=== PATIENT | female | born 1960 | race American Indian/Alaskan Native ===

== ENCOUNTER 2017-11-11 11:38 | Emergency (ER) | payer OTHER ==
--- NOTE | 2017-11-11 12:31 | EDM.PDOC ---
Scribed by Rebecca Pritchard 11/11/17 1200 for Graham Paiz MD ED HPI GENERAL MEDICAL PROBLEM - General Chief Complaint: Wound Recheck Stated Complaint: [id number] STITCHES BLEEDING Time Seen by Provider: 11/11/17 11:43 Source of Information: Reports: Patient, RN, RN Notes Reviewed History Limitations: Reports: No Limitations - History of Present Illness INITIAL COMMENTS - FREE TEXT/NARRATIVE: Pt presents from home by POV with c/o bleeding from the incision of her lumbar surgery. She was seen in clinic by Dr. Villalta yesterday and had sutures removed. Pt states her back surgery took place about [address] Villalta at [facility] in . This morning pt states she did her "normal morning routine" and at 0800HRS her noticed the new dressing on her back was soaked with dark blood. Pt denies any injury, or fall. She denies any increased pain, fever, chills, or neuro. deficits. Onset: Today Onset Date: 11/11/17 Onset Time: 08:00 (est. 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: Reports: Other Medication(s) - Related Data Allergies Allergy/AdvReac Type Severity Reaction Status Date / Time Penicillins Allergy Severe hives and Verified 11/11/17 11:49 can't breath Home Meds: Home Meds Aspirin 1 tab PO DAILY 11/11/17 [History] Carisoprodol 1 tab PO DAILY PRN 11/11/17 [History] Fenofibric Acid (Choline) [Fenofibric Acid] 1 tab PO DAILY 11/11/17 [History] Gabapentin [Neurontin] 1 tab PO DAILY PRN 11/11/17 [History] Hydrochlorothiazide 1 tab PO DAILY 11/11/17 [History] Insulin Glarg,Human.Rec.Analog [Lantus Solostar] 30 units SQ BID 11/11/17 [ History] Lisinopril 1 tab PO DAILY 11/11/17 [History] atorvaSTATin Calcium [Atorvastatin Calcium] 1 tab PO DAILY 11/11/17 [History] glyBURIDE [Glyburide] 2 tab PO BID 11/11/17 [History] metFORMIN HCl [Metformin HCl] 1 tab PO BID 11/11/17 [History] oxyCODONE 1 tab PO Q4H PRN 11/11/17 [History] Past Medical History Musculoskeletal History: Reports: Back Pain, Chronic Endocrine/Metabolic History: Reports: Diabetes, Type II, IDDM - Past Surgical History Neurological Surgical History: Reports: Lumbar Spine (October 28, 2017, at [facility], by Dr. Villalta) Social & Family History - Family History Family Medical History: Noncontributory - Living Situation & Occupation Living situation: Reports: Occupation: Disabled ED ROS GENERAL - Review of Systems Review Of Systems: ROS reveals no pertinent complaints other than HPI. ED EXAM, SKIN/RASH Exam: See Below Exam Limited By: No Limitations General Appearance: Alert, No Apparent Distress, Anxious, Other (chronically ill , non-toxic appearing) Throat/Mouth: Normal Voice Head: Atraumatic, Normocephalic Neck: Normal Inspection Respiratory/Chest: No Respiratory Distress, Lungs Clear, Normal Breath Sounds, No Accessory Muscle Use, Chest Non-Tender Cardiovascular: Regular Rate, Rhythm GI/Abdominal: Normal Bowel Sounds, Soft, Non-Tender, No Distention Rectal (Female) Exam: Deferred Back Exam: Decreased Range of Motion (at baseline per pt.), Paraspinal Tenderness (as expected in pt's postoperative state) Extremities: Normal Inspection, Normal Range of Motion, Non-Tender, No Pedal Edema, Normal Capillary Refill Neurological: Alert, Oriented, CN II-XII Intact, Normal Cognition, No Motor/ Sensory Deficits Psychiatric: Anxious Skin: Wound/Incision (Midline lumbar surgical incision with occlusive dressing saturated with dark bloody fluid. The incision has 2 areas of superficial dehis. measuring 2cm and 3cm, with no erythema or any signs of infection, no active bleeding) Course - Vital Signs Last Recorded V/S: Last Vital Signs Temp 36.7 C 11/11/17 11:42 Pulse 93 11/11/17 11:42 Resp 18 11/11/17 11:42 BP 112/57 L 11/11/17 11:42 Pulse Ox 99 11/11/17 11:42 - Re-Assessments/Exams Free Text/Narrative Re-Assessment/Exam: 11/11/17 12:26 Dressing removed and serous/blood area gently cleansed by RN, steri-strips placed over the areas of dehis. and sterile dressing placed over. Pt's instructed in dressing change in the event the dressing becomes saturated. Departure - Departure Time of Disposition: 12:28 Disposition: Home, Self-Care 01 Condition: Good Clinical Impression: Surgical wound dehiscence Qualifiers: Encounter type: initial encounter Qualified Code(s): T81.31XA - Disruption of external operation (surgical) wound, not elsewhere classified, initial encounter - Discharge Information Instructions: Wound Dehiscence, [id number] Forms: ED Department Discharge Additional Instructions: Change the dressing as instructed by the nurse if the dressing becomes saturated with blood. Call Dr. Villalta tomorrow to report the wound dehiscence (opening of the incision). I have read and agree with the documentation that has been completed regarding this visit. By signing this record, I attest that the documentation was completed in my physical presence and is an accurate record of the encounter.
== END 2017-11-11 12:45 | disposition home or self-care (01) ==
LOC: DL.ED 11:38
DX: T81.31XA Disruption of external operation (surgical) wound, not elsewhere classified, initial encounter (principal); E11.9 Type 2 diabetes mellitus without complications; Z88.0 Allergy status to penicillin; Z79.82 Long term (current) use of aspirin; Z79.899 Other long term (current) drug therapy; Z79.4 Long term (current) use of insulin; Z98.890 Other specified postprocedural states
CPT/HCPCS: 99282

== ENCOUNTER 2019-04-04 15:49 | Emergency (ER) | payer OTHER ==
--- NOTE | 2019-04-04 14:18 | EDM.PDOC ---
ED HPI GENERAL MEDICAL PROBLEM - General Stated Complaint: STROKE Time Seen by Provider: 04/04/19 13:58 Source of Information: Reports: Patient, EMS, Family History Limitations: Reports: No Limitations - History of Present Illness INITIAL COMMENTS - FREE TEXT/NARRATIVE: This 58 yo female patient was brought to the ED by [facility] due to increased profound weakness. EMS called in report as a stroke code. Upon arrival in the ED , the patient reports increased back pain. The patient was able to move her upper and lower extremities without difficulties. EMS reported that the patient' s blood sugar was >500. The patient's family reports the patient started to get sick on Thursday, but has been getting worse throughout the weekend. Today, the family reports the patient was too weak to move. The patient has had a spinal surgery causing her increased pain with movement. Onset: Unknown/Unsure Duration: Constant, Getting Worse Location: Reports: Generalized Quality: Reports: Other Severity: Severe Improves with: Reports: None Worsens with: Reports: None Context: Reports: Other Associated Symptoms: Reports: Other (back pain) - Related Data Allergies Allergy/AdvReac Type Severity Reaction Status Date / Time Penicillins Allergy Severe hives and Verified 03/31/19 16:06 can't breath Home Meds: Home Meds Aspirin 81 mg PO DAILY 11/11/17 [History] Fenofibric Acid (Choline) [Fenofibric Acid] 135 mg PO DAILY 11/11/17 [History] Insulin Glarg,Human.Rec.Analog [Lantus Solostar] 50 units SQ BID 11/11/17 [ History] Lisinopril 20 mg PO DAILY 11/11/17 [History] hydroCHLOROthiazide [Hydrochlorothiazide] 25 mg PO DAILY 11/11/17 [History] metFORMIN HCl [Metformin HCl] 1,000 mg PO BID 11/11/17 [History] Alendronate [Fosamax] 70 mg PO WEEKLY 12/28/17 [History] Levothyroxine [Levothroid] 137 mcg PO DAILY 11/09/18 [History] Lactulose 20 gm PO Q3HR PRN #2 bottle 11/10/18 [Rx] Acetaminophen [Tylenol Arthritis] 650 mg PO Q8HR PRN 12/07/18 [History] atorvaSTATin Calcium [Atorvastatin Calcium] 40 mg PO DAILY 12/09/18 [History] Past Medical History HEENT History: Reports: Impaired Vision Other HEENT History: glasses Cardiovascular History: Reports: High Cholesterol, Hypertension Respiratory History: Reports: None Gastrointestinal History: Reports: GERD, Other (See Below) Other Gastrointestinal History: acute constipation from pain pills - takes otc stool softeners. 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: Musculoskeletal History: Reports: Back Pain, Chronic, Osteoarthritis, Other ( See Below) Other Musculoskeletal History: lumbar disc disease Left foot surgery Neurological History: Reports: Vertigo Psychiatric History: Reports: None Endocrine/Metabolic History: Reports: Diabetes, Type II, Hypothyroidism, IDDM Hematologic History: Reports: None Immunologic History: Reports: None Oncologic (Cancer) History: Reports: None Dermatologic History: Reports: None - Infectious Disease History Other Infectious Disease History: unknown - Past Surgical History HEENT Surgical History: Reports: None Cardiovascular Surgical History: Reports: None Respiratory Surgical History: Reports: None GI Surgical History: Reports: None Female Surgical History: Reports: None Neurological Surgical History: Reports: Lumbar Spine, Other (See Below) Other Neurological Surgeries/Procedures: spinal fusion Musculoskeletal Surgical History: Reports: Other (See Below) Other Musculoskeletal Surgeries/Procedures:: back surgery, LEFT foot surgery Social & Family History - Family History Family Medical History: Noncontributory - Caffeine Use Caffeine Use: Reports: None - Living Situation & Occupation Living situation: Reports: Occupation: Disabled ED ROS GENERAL - Review of Systems Review Of Systems: Comprehensive ROS is negative, except as noted in HPI. ED EXAM, GENERAL - Physical Exam Exam: See Below Exam Limited By: No Limitations (Responses were slow, but appropriate) General Appearance: Alert, WD/WN, Moderate Distress Eye Exam: Bilateral Eye: EOMI, Normal Inspection, PERRL Ears: Normal External Exam, Normal Canal, Hearing Grossly Normal, Normal TMs Nose: Normal Inspection, Normal Mucosa, No Blood Throat/Mouth: Normal Inspection, Normal Lips, Normal Teeth, Normal Gums, Normal Oropharynx, Normal Voice, No Airway Compromise Head: Atraumatic, Normocephalic Neck: Normal Inspection, Supple, Non-Tender Respiratory/Chest: No Respiratory Distress, Lungs Clear, Normal Breath Sounds, No Accessory Muscle Use, Chest Non-Tender Cardiovascular: No Edema, No Gallop, No JVD, No Murmur, No Rub, Tachycardia GI/Abdominal: Normal Bowel Sounds, Soft, Non-Tender, No Organomegaly, No Distention, No Abnormal Bruit, No Mass, Pelvis Stable (Female) Exam: Deferred Rectal (Female) Exam: Deferred Back Exam: Normal Inspection, Full Range of Motion, NT Extremities: Normal Inspection, Normal Range of Motion, Non-Tender, Normal Capillary Refill, No Pedal Edema Neurological: Alert, Oriented, Slow to Respond, Other (The patient was able to move all extremities when asked) Skin Exam: Warm, Dry, Normal Color, No Rash, Other (The patient has a bandage on her left foot. ) Lymphatic: No Adenopathy Course - Vital Signs Last Recorded V/S: Last Vital Signs Temp 36.1 C 04/04/19 14:35 Pulse 118 H 04/04/19 15:32 Resp 22 H 04/04/19 15:00 BP 77/49 L 04/04/19 15:32 Pulse Ox 100 04/04/19 15:00 - Orders/Labs/Meds Orders: Active Orders 24 hr Category Date Time Status EKG Documentation Completion [RC] URGENT Care 04/04/19 14:04 Active ABG [BLOOD GAS ARTERIAL] [BG] Stat Lab 04/04/19 15:20 Ordered CULTURE BLOOD [BC] Stat Lab 04/04/19 14:05 Received CULTURE BLOOD [BC] Stat Lab 04/04/19 14:33 Received Blood Culture x2 Reflex Set [OM.PC] Stat Oth 04/04/19 14:30 Ordered Labs: Laboratory Tests 04/04/19 04/04/19 04/04/19 Range/Units 14:05 14:05 14:11 WBC 13.4 H (5.0-10.0) 10^3/uL RBC 4.76 (4.2-5.4) 10^6/uL Hgb 14.6 (12.0-16.0) g/dL Hct 43.9 (37.0-47.0) % MCV 92.2 (80-100) fL MCH 30.7 (27.0-34.0) pg MCHC 33.3 (33.0-35.0) g/dL Plt Count 172 (150-450) 10^3/uL Neut % (Auto) 84.2 H (42.2-75.2) % Lymph % (Auto) 4.5 L (20.5-50.1) % [place] % (Auto) 11.2 H (2-8) % Eos % (Auto) 0.0 L (1.0-3.0) % Baso % (Auto) 0.1 (0.0-1.0) % Add Manual Diff Yes Neutrophils % (Manual) 76 H (42-75) % Band Neutrophils % 8 % Lymphocytes % (Manual) 4 L (20-50) % Monocytes % (Manual) 12 H (2-8) % Nucleated RBCs 1 /100WBC Sodium (135-145) mmol/L Potassium (3.6-5.0) mmol/L Chloride (101-111) mmol/L Carbon Dioxide (21.0-31.0) mmol/L Anion Gap BUN (7-18) mg/dL Creatinine (0.6-1.3) mg/dL Est Cr Clr Drug Dosing Estimated GFR (MDRD) BUN/Creatinine Ratio Glucose (74-105) mg/dL POC Glucose > 500 H* (70-105) mg/dl Lactic Acid (0.5-2.2) mmol/L Calcium (8.4-10.2) mg/dl Magnesium (1.8-2.5) mg/dL Total Bilirubin (0.2-1.0) mg/dL AST (10-42) IU/L ALT (10-60) IU/L Alkaline Phosphatase (42-121) IU/L Ammonia 33 (11-35) umol/L Troponin I (0.00-0.02) ng/ml Total Protein (6.7-8.2) g/dl Albumin (3.2-5.5) g/dl Globulin Albumin/Globulin Ratio Amylase (28-100) U/L Lipase (22-51) U/L Urine Color (YELLOW) Urine Appearance (CLEAR) Urine pH (5.0-9.0) Ur Specific [place] (1.005-1.030) Urine Protein (NEGATIVE) Urine Glucose (UA) (NEGATIVE) Urine Ketones (NEGATIVE) Urine Occult Blood (NEGATIVE) Urine Nitrite (NEGATIVE) Urine Bilirubin (NEGATIVE) Urine Urobilinogen (0.2-1.0) mg/dL Ur Leukocyte Esterase (NEGATIVE) Urine RBC /HPF Urine WBC (0-5/HPF) /HPF Ur Epithelial Cells (NOT SEEN) /HPF Amorphous Sediment (NOT SEEN) /HPF Urine Bacteria (0-FEW/HPF) /HPF Fine Granular Casts (NOT SEEN) /LPF Urine Mucus (NOT SEEN) /LPF Salicylates mg/dL Urine Opiates Screen (NEGATIVE) Ur Oxycodone Screen (NEGATIVE) Urine Methadone Screen (NEGATIVE) Acetaminophen ug/mL Ur Barbiturates Screen (NEGATIVE) U Tricyclic Antidepress (NEGATIVE) Ur Phencyclidine Scrn (NEGATIVE) Ur Amphetamine Screen (NEGATIVE) U Methamphetamines Scrn (NEGATIVE) Urine MDMA Screen (NEGATIVE) U Benzodiazepines Scrn (NEGATIVE) Urine Cocaine Screen (NEGATIVE) U Marijuana (THC) Screen (NEGATIVE) Ethyl Alcohol mg/dL Ketones 04/04/19 04/04/19 04/04/19 Range/Units 14:33 14:33 14:33 WBC (5.0-10.0) 10^3/uL RBC (4.2-5.4) 10^6/uL Hgb (12.0-16.0) g/dL Hct (37.0-47.0) % MCV (80-100) fL MCH (27.0-34.0) pg MCHC (33.0-35.0) g/dL Plt Count (150-450) 10^3/uL Neut % (Auto) (42.2-75.2) % Lymph % (Auto) (20.5-50.1) % [place] % (Auto) (2-8) % Eos % (Auto) (1.0-3.0) % Baso % (Auto) (0.0-1.0) % Add Manual Diff Neutrophils % (Manual) (42-75) % Band Neutrophils % % Lymphocytes % (Manual) (20-50) % Monocytes % (Manual) (2-8) % Nucleated RBCs /100WBC Sodium 123 L D (135-145) mmol/L Potassium 4.2 (3.6-5.0) mmol/L Chloride 84 L (101-111) mmol/L Carbon Dioxide 8.0 L* D (21.0-31.0) mmol/L Anion Gap 35.2 BUN 74 H D (7-18) mg/dL Creatinine 2.1 H D (0.6-1.3) mg/dL Est Cr Clr Drug Dosing TNP Estimated GFR (MDRD) 24 BUN/Creatinine Ratio 35.23 Glucose 598 H* (74-105) mg/dL POC Glucose (70-105) mg/dl Lactic Acid 2.7 H (0.5-2.2) mmol/L Calcium 9.1 (8.4-10.2) mg/dl Magnesium 3.0 H (1.8-2.5) mg/dL Total Bilirubin 2.9 H (0.2-1.0) mg/dL AST 20 (10-42) IU/L ALT 18 (10-60) IU/L Alkaline Phosphatase 57 (42-121) IU/L Ammonia (11-35) umol/L Troponin I 0.10 H* (0.00-0.02) ng/ml Total Protein 7.0 (6.7-8.2) g/dl Albumin 2.8 L (3.2-5.5) g/dl Globulin 4.2 Albumin/Globulin Ratio 0.67 Amylase 330 H (28-100) U/L Lipase > 400 H (22-51) U/L Urine Color (YELLOW) Urine Appearance (CLEAR) Urine pH (5.0-9.0) Ur Specific [place] (1.005-1.030) Urine Protein (NEGATIVE) Urine Glucose (UA) (NEGATIVE) Urine Ketones (NEGATIVE) Urine Occult Blood (NEGATIVE) Urine Nitrite (NEGATIVE) Urine Bilirubin (NEGATIVE) Urine Urobilinogen (0.2-1.0) mg/dL Ur Leukocyte Esterase (NEGATIVE) Urine RBC /HPF Urine WBC (0-5/HPF) /HPF Ur Epithelial Cells (NOT SEEN) /HPF Amorphous Sediment (NOT SEEN) /HPF Urine Bacteria (0-FEW/HPF) /HPF Fine Granular Casts (NOT SEEN) /LPF Urine Mucus (NOT SEEN) /LPF Salicylates < 4 mg/dL Urine Opiates Screen (NEGATIVE) Ur Oxycodone Screen (NEGATIVE) Urine Methadone Screen (NEGATIVE) Acetaminophen < 10 ug/mL Ur Barbiturates Screen (NEGATIVE) U Tricyclic Antidepress (NEGATIVE) Ur Phencyclidine Scrn (NEGATIVE) Ur Amphetamine Screen (NEGATIVE) U Methamphetamines Scrn (NEGATIVE) Urine MDMA Screen (NEGATIVE) U Benzodiazepines Scrn (NEGATIVE) Urine Cocaine Screen (NEGATIVE) U Marijuana (THC) Screen (NEGATIVE) Ethyl Alcohol < 5 mg/dL Ketones Positive 04/04/19 04/04/19 Range/Units 14:50 14:50 WBC (5.0-10.0) 10^3/uL RBC (4.2-5.4) 10^6/uL Hgb (12.0-16.0) g/dL Hct (37.0-47.0) % MCV (80-100) fL MCH (27.0-34.0) pg MCHC (33.0-35.0) g/dL Plt Count (150-450) 10^3/uL Neut % (Auto) (42.2-75.2) % Lymph % (Auto) (20.5-50.1) % [place] % (Auto) (2-8) % Eos % (Auto) (1.0-3.0) % Baso % (Auto) (0.0-1.0) % Add Manual Diff Neutrophils % (Manual) (42-75) % Band Neutrophils % % Lymphocytes % (Manual) (20-50) % Monocytes % (Manual) (2-8) % Nucleated RBCs /100WBC Sodium (135-145) mmol/L Potassium (3.6-5.0) mmol/L Chloride (101-111) mmol/L Carbon Dioxide (21.0-31.0) mmol/L Anion Gap BUN (7-18) mg/dL Creatinine (0.6-1.3) mg/dL Est Cr Clr Drug Dosing Estimated GFR (MDRD) BUN/Creatinine Ratio Glucose (74-105) mg/dL POC Glucose (70-105) mg/dl Lactic Acid (0.5-2.2) mmol/L Calcium (8.4-10.2) mg/dl Magnesium (1.8-2.5) mg/dL Total Bilirubin (0.2-1.0) mg/dL AST (10-42) IU/L ALT (10-60) IU/L Alkaline Phosphatase (42-121) IU/L Ammonia (11-35) umol/L Troponin I (0.00-0.02) ng/ml Total Protein (6.7-8.2) g/dl Albumin (3.2-5.5) g/dl Globulin Albumin/Globulin Ratio Amylase (28-100) U/L Lipase (22-51) U/L Urine Color Yellow (YELLOW) Urine Appearance Cloudy (CLEAR) Urine pH 5.0 (5.0-9.0) Ur Specific [place] 1.010 (1.005-1.030) Urine Protein 30 H (NEGATIVE) Urine Glucose (UA) 500 H (NEGATIVE) Urine Ketones 40 H (NEGATIVE) Urine Occult Blood Trace-intact H (NEGATIVE) Urine Nitrite Negative (NEGATIVE) Urine Bilirubin Moderate H (NEGATIVE) Urine Urobilinogen 0.2 (0.2-1.0) mg/dL Ur Leukocyte Esterase Negative (NEGATIVE) Urine RBC 5-10 H /HPF Urine WBC 0-5 (0-5/HPF) /HPF Ur Epithelial Cells Moderate H (NOT SEEN) /HPF Amorphous Sediment Few (NOT SEEN) /HPF Urine Bacteria Occasional (0-FEW/HPF) /HPF Fine Granular Casts Few H (NOT SEEN) /LPF Urine Mucus Few H (NOT SEEN) /LPF Salicylates mg/dL Urine Opiates Screen Positive H (NEGATIVE) Ur Oxycodone Screen Negative (NEGATIVE) Urine Methadone Screen Negative (NEGATIVE) Acetaminophen ug/mL Ur Barbiturates Screen Negative (NEGATIVE) U Tricyclic Antidepress Negative (NEGATIVE) Ur Phencyclidine Scrn Negative (NEGATIVE) Ur Amphetamine Screen Negative (NEGATIVE) U Methamphetamines Scrn Negative (NEGATIVE) Urine MDMA Screen Negative (NEGATIVE) U Benzodiazepines Scrn Negative (NEGATIVE) Urine Cocaine Screen Negative (NEGATIVE) U Marijuana (THC) Screen Negative (NEGATIVE) Ethyl Alcohol mg/dL Ketones Meds: Medications Discontinued Medications Generic Name Dose Route Start Last Admin Trade Name Freq PRN Reason Stop Dose Admin Sodium Chloride 1,000 mls @ 999 mls/hr 04/04/19 14:18 04/04/19 14:15 Normal Saline IV 04/04/19 15:18 999 mls/hr .BOLUS ONE Administration Departure - Departure Time of Disposition: 15:45 Disposition: DC/Tfer to Acute Hospital 02 Condition: Serious Clinical Impression: Elevated troponin I level DKA (diabetic ketoacidoses) Qualifiers: Diabetes mellitus type: due to underlying condition Diabetes mellitus complication detail: without coma Qualified Code(s): E08.10 - Diabetes mellitus due to underlying condition with ketoacidosis without coma ARF (acute renal failure) Qualifiers: Acute renal failure type: unspecified Qualified Code(s): N17.9 - Acute kidney failure, unspecified - Discharge Information *PRESCRIPTION DRUG MONITORING PROGRAM REVIEWED*: Not Applicable *COPY OF PRESCRIPTION DRUG MONITORING REPORT IN PATIENT SUKI: Not Applicable Forms: Interfacility Transfer EMTALA Care Plan Goals: Discussed the patient's history, examination, lab, CT, x-ray, EKG and treatments with Dr. Rose. Dr. Rose accepted the patient for continued evaluation and further management as an inpatient at [facility] in [place]. The patient will be transported by [facility]. - My Orders Last 24 Hours: My Active Orders 04/04/19 14:04 EKG Documentation Completion [RC] URGENT 04/04/19 14:05 CULTURE BLOOD [BC] Stat 04/04/19 14:30 Blood Culture x2 Reflex Set [OM.PC] Stat 04/04/19 14:33 CULTURE BLOOD [BC] Stat 04/04/19 15:20 ABG [BLOOD GAS ARTERIAL] [BG] Stat - Assessment/Plan Last 24 Hours: My Active Orders 04/04/19 14:04 EKG Documentation Completion [RC] URGENT 04/04/19 14:05 CULTURE BLOOD [BC] Stat 04/04/19 14:30 Blood Culture x2 Reflex Set [OM.PC] Stat 04/04/19 14:33 CULTURE BLOOD [BC] Stat 04/04/19 15:20 ABG [BLOOD GAS ARTERIAL] [BG] Stat
--- NOTE | 2019-04-04 14:36 | CR ---
EXAMINATION: Chest 1V Frontal SEX: Female AGE: 58 years CLINICAL HISTORY: 58-year-old diabetic female (blood sugar greater than 500) with generalized weakness. INTERPRETATION: 1. Normal cardiac silhouette and bony thorax (external equipment monitor phototypesetting leads). 2. No cephalization of vascular flow, pulmonary vascular congestion, alveolar edema or dependent effusion. 3. No focal lobar pneumonia. 4. No lung mass or hilar lymphadenopathy. 5. No atelectasis/collapse. No pneumothorax. CONCLUSION: No acute cardiopulmonary abnormality.
--- NOTE | 2019-04-04 14:38 | CT ---
EXAMINATION: Head wo Cont SEX: Female AGE: 58 years CLINICAL HISTORY: 58-year-old diabetic female with generalized weakness (serum glucose greater than 500). SCAN TECHNIQUE: Volume acquisition of data from an emergency unenhanced CT scan of the head and brain obtained with the patient lying supine on the Siemens multislice scanner [place], [place]. All data archived in the PACS system for storage, reformatting axial/sagittal/coronal planes and study. No comparison exams immediately available. INTERPRETATION: 1. No sign of supratentorial or posterior fossa intracranial mass lesion. 2. Symmetric prominence of ventricular system suggests possibility of normotensive, normal pressure hydrocephalus. Clinical? (No atrophy. 3. Some scattered tiny areas of decreased attenuation periventricular white matter indicating probable microvascular ischemic infarcts. No focal areas of encephalomalacia. No sign of acute intracerebral/intraventricular/subarachnoid bleed. 4. Uniformly thick bony calvarium and symmetric clear pneumatization of the paranasal/mastoid sinuses. 5. No sign of skull fracture, underlying brain contusion or abnormal extracerebral/intracranial epidural or subdural hematoma. 6. No sign of acute intracerebral/intraventricular/subarachnoid bleed. CONCLUSION: Symmetric mild ventricular prominence (see above). Microvascular ischemic changes. No intracranial mass or bleed.
[2019-04-04 15:09] LABS: ACETAMINOPHEN < 10 ug/mL
[2019-04-04 15:17] LABS: ANION GAP 35.2; CHLORIDE,CL 84 mmol/L (101-111); SODIUM,NA 123 mmol/L (135-145)
[~2019-04-04 15:49] MED LIST: Sodium Chloride 0.9% 1,000 ML IV ONE
[2019-04-04 15:59] LABS: BASE EXCESS ARTERIAL -23 mmol/L ((-2)-(+3)); BICARBONATE,ARTERIAL 4.4 mmol/L (22-26); O2 DELIVERY DEVICE ROOM AIR; O2 SATURATION ARTERIAL 97 % (95-100); PO2 ARTERIAL 101 mmHg (70-100)
[2019-04-04 16:03] LABS: ALLEN TEST PERFORMED; PCO2 ARTERIAL 12 mmHg (35-45)
== END 2019-04-04 17:06 ==
LOC: DL.ED 15:49
DX: R79.89 Other specified abnormal findings of blood chemistry (principal); N17.9 Acute kidney failure, unspecified; I10 Essential (primary) hypertension; E03.9 Hypothyroidism, unspecified; E78.00 Pure hypercholesterolemia, unspecified; E08.10 Diabetes mellitus due to underlying condition with ketoacidosis without coma; Z79.82 Long term (current) use of aspirin; Z79.4 Long term (current) use of insulin; Z79.899 Other long term (current) drug therapy; Z88.0 Allergy status to penicillin
CPT/HCPCS: 36415; 36600; 51702; 70450; 71045; 80053; 80305; 80320; 80329; 81001; 82009; 82140; 82150; 82803; 82962; 83605; 83690; 83735; 84484; 85025; 87040; 93005; 99285; J7030; 99284; G0480

== ENCOUNTER 2019-05-06 10:02 | Emergency (ER) | payer OTHER ==
[2019-05-06] MEDS ORDERED: Rocuronium 100 MG/10 ML MDV IV ONE (10:03)
[2019-05-06] MEDS ORDERED: Succinylcholine 200 MG/10 ML MDV IV ONE (10:03)
[2019-05-06] MEDS ORDERED: Naloxone 2 MG/2 ML Syringe IVPUSH ONE (10:04)
[2019-05-06] MEDS ORDERED: Norepinephrine 4 MG/4 ML SDV ONE (10:08)
[2019-05-06] MEDS ORDERED: Norepinephrine 4 MG in Dextrose 5% in Water 246 ML IV SCH ×2 (10:15)
[2019-05-06 10:26] LABS: ANION GAP 18.4; CHLORIDE,CL 91 mmol/L (101-111); SODIUM,NA 129 mmol/L (135-145)
[2019-05-06] MEDS ORDERED: Albuterol 0.083% 2.5 MG/3 ML Neb Soln NEB ONE (10:28)
--- NOTE | 2019-05-06 10:43 | EDM.PDOC ---
ED HPI GENERAL MEDICAL PROBLEM - General Chief Complaint: CPR in Progress Stated Complaint: UNKNOWN Time Seen by Provider: 05/06/19 10:02 Source of Information: Reports: EMS, EMS Notes Reviewed, Family, RN, RN Notes Reviewed History Limitations: Reports: Altered Mental Status, Respiratory Distress - History of Present Illness INITIAL COMMENTS - FREE TEXT/NARRATIVE: patient presents to ER per [facility]. EMS was paged for an elderly female having difficulty swallowing her pills. Upon arrival to the patient's home she was alert and somewhat uncooperative, did not want to be taken to the hospital. Eventually she cooperated. While in route to the hospital, patient became unresponsive, O2 saturation dropped to 70s, heart rate tachycardia, blood pressure unreadable. patient is a known diabetic, does take lactulose, has a history of chronic back pain, and pain medication use. Patient unresponsive to painful stimuli upon arrival to the ER. Heart rate in the 120s, sinus rhythm. Began ventilating the patient with a bag valve mask. O2 saturation came up to 99 -100%. In the end of March, the patient was brought to the emergency Department as a stroke code, with left sided weakness. states he is unsure what precipitated the event. States she has not been sick recently. Onset: Today - Related Data Allergies Allergy/AdvReac Type Severity Reaction Status Date / Time Penicillins Allergy Severe hives and Verified 05/06/19 10:19 can't breath Home Meds: Home Meds Aspirin 81 mg PO DAILY 11/11/17 [History] Fenofibric Acid (Choline) [Fenofibric Acid] 135 mg PO DAILY 11/11/17 [History] Insulin Glarg,Human.Rec.Analog [Lantus Solostar] 50 units SQ BID 11/11/17 [ History] Lisinopril 20 mg PO DAILY 11/11/17 [History] hydroCHLOROthiazide [Hydrochlorothiazide] 25 mg PO DAILY 11/11/17 [History] metFORMIN HCl [Metformin HCl] 1,000 mg PO BID 11/11/17 [History] Alendronate [Fosamax] 70 mg PO WEEKLY 12/28/17 [History] Levothyroxine [Levothroid] 137 mcg PO DAILY 11/09/18 [History] Lactulose 20 gm PO Q3HR PRN #2 bottle 11/10/18 [Rx] Acetaminophen [Tylenol Arthritis] 650 mg PO Q8HR PRN 12/07/18 [History] atorvaSTATin Calcium [Atorvastatin Calcium] 40 mg PO DAILY 12/09/18 [History] Past Medical History HEENT History: Reports: Impaired Vision Other HEENT History: glasses Cardiovascular History: Reports: High Cholesterol, Hypertension Respiratory History: Reports: None Gastrointestinal History: Reports: GERD, Other (See Below) Other Gastrointestinal History: acute constipation from pain pills - takes otc stool softeners. Genitourinary History: Reports: None NICKER AND BREAKER History: Reports: Musculoskeletal History: Reports: Back Pain, Chronic, Osteoarthritis, Osteoporosis, Other (See Below) Other Musculoskeletal History: lumbar disc disease Left foot surgery Neurological History: Reports: Vertigo Psychiatric History: Reports: None Endocrine/Metabolic History: Reports: Diabetes, Type II, Hypothyroidism, IDDM Hematologic History: Reports: None Immunologic History: Reports: None Oncologic (Cancer) History: Reports: None Dermatologic History: Reports: None - Infectious Disease History Other Infectious Disease History: unknown - Past Surgical History HEENT Surgical History: Reports: None Cardiovascular Surgical History: Reports: None Respiratory Surgical History: Reports: None GI Surgical History: Reports: None Female Surgical History: Reports: None Neurological Surgical History: Reports: Lumbar Spine, Other (See Below) Other Neurological Surgeries/Procedures: spinal fusion Musculoskeletal Surgical History: Reports: Other (See Below) Other Musculoskeletal Surgeries/Procedures:: back surgery, LEFT foot surgery Social & Family History - Family History Family Medical History: Noncontributory - Tobacco Use Smoking Status *Q: Unknown Ever Smoked - Caffeine Use Caffeine Use: Reports: None Caffeine Use Comment: unknown - Living Situation & Occupation Living situation: Reports: Occupation: Disabled ED ROS GENERAL - Review of Systems Review Of Systems: Comprehensive ROS is negative, except as noted in HPI. ED EXAM, GENERAL - Physical Exam Exam: See Below Exam Limited By: Altered Mental Status General Appearance: Obtunded Eye Exam: Bilateral Eye: PERRL (3 very sluggish) Ears: Normal External Exam Nose: Normal Inspection Throat/Mouth: Normal Inspection, Normal Lips, Normal Teeth, Normal Gums Head: Atraumatic, Normocephalic Neck: Normal Inspection Respiratory/Chest: Respiratory Distress (patient being ventilated with bag-valve -mask), Decreased Breath Sounds, Crackles (bases bilaterally) Cardiovascular: Normal Peripheral Pulses, No Edema, No Gallop, No JVD, No Murmur , No Rub, Tachycardia Peripheral Pulses: 1+: Radial (L), Radial (R), Femoral (L), Femoral (R) GI/Abdominal: Normal Bowel Sounds, Soft, Non-Tender, Other (large bruise across the left side of the abdomen) (Female) Exam: Deferred Rectal (Female) Exam: Deferred Back Exam: Normal Inspection Extremities: Normal Inspection Neurological: Unresponsive Skin Exam: Warm, Dry, Other (Ulcer to the bottom of the left foot) Lymphatic: No Adenopathy Course - Orders/Labs/Meds Orders: Active Orders 24 hr Category Date Time Status EKG 12 Lead [EKG Documentation Completion] [RC] STAT Care 05/06/19 10:37 Active Insert Zepeda Catheter [Insert Urinary Catheter] [OM.PC] Care 05/06/19 10:45 Ordered Q24H RT Aerosol Therapy [RC] ASDIRECTED Care 05/06/19 11:34 Active Urinary Catheter Assessment [RC] ASDIRECTED Care 05/06/19 10:45 Active Chest 1V Frontal [CR] Routine Exams 05/06/19 10:15 Taken Chest 1V Frontal [CR] Urgent Exams 05/06/19 10:21 Taken CULTURE BLOOD [BC] Stat Lab 05/06/19 10:24 Results CULTURE BLOOD [BC] Stat Lab 05/06/19 10:28 Received Labs: Laboratory Tests 05/06/19 05/06/19 05/06/19 Range/Units 10:00 10:00 10:10 WBC 18.2 H (5.0-10.0) 10^3/uL RBC 3.04 L (4.2-5.4) 10^6/uL Hgb 9.1 L D (12.0-16.0) g/dL Hct 29.0 L (37.0-47.0) % MCV 95.4 D (80-100) fL MCH 29.9 (27.0-34.0) pg MCHC 31.4 L (33.0-35.0) g/dL Plt Count 391 D (150-450) 10^3/uL Neut % (Auto) 81.9 H (42.2-75.2) % Lymph % (Auto) 9.7 L (20.5-50.1) % [place] % (Auto) 8.3 H (2-8) % Eos % (Auto) 0.0 L (1.0-3.0) % Baso % (Auto) 0.1 (0.0-1.0) % Add Manual Diff Yes Neutrophils % (Manual) 74 (42-75) % Band Neutrophils % 6 % Lymphocytes % (Manual) 14 L (20-50) % Monocytes % (Manual) 6 (2-8) % Sodium 129 L (135-145) mmol/L Potassium 5.4 H (3.6-5.0) mmol/L Chloride 91 L (101-111) mmol/L Carbon Dioxide 25.0 D (21.0-31.0) mmol/L Anion Gap 18.4 BUN 101 H D (7-18) mg/dL Creatinine 1.9 H (0.6-1.3) mg/dL Est Cr Clr Drug Dosing TNP Estimated GFR (MDRD) 27 BUN/Creatinine Ratio 53.15 Glucose 236 H (74-105) mg/dL Lactic Acid (0.5-2.2) mmol/L Calcium 8.8 (8.4-10.2) mg/dl Total Bilirubin 0.8 (0.2-1.0) mg/dL AST 91 H (10-42) IU/L ALT 40 (10-60) IU/L Alkaline Phosphatase 95 (42-121) IU/L Ammonia (11-35) umol/L Troponin I 0.03 H* (0.00-0.02) ng/ml Total Protein 6.6 L (6.7-8.2) g/dl Albumin 1.9 L (3.2-5.5) g/dl Globulin 4.7 Albumin/Globulin Ratio 0.40 Urine Color Yellow (YELLOW) Urine Appearance Slightly cloudy (CLEAR) Urine pH 5.0 (5.0-9.0) Ur Specific [place] 1.020 (1.005-1.030) Urine Protein Negative (NEGATIVE) Urine Glucose (UA) Negative (NEGATIVE) Urine Ketones Negative (NEGATIVE) Urine Occult Blood Negative (NEGATIVE) Urine Nitrite Negative (NEGATIVE) Urine Bilirubin Negative (NEGATIVE) Urine Urobilinogen 0.2 (0.2-1.0) mg/dL Ur Leukocyte Esterase Negative (NEGATIVE) Urine Opiates Screen (NEGATIVE) Ur Oxycodone Screen (NEGATIVE) Urine Methadone Screen (NEGATIVE) Ur Barbiturates Screen (NEGATIVE) U Tricyclic Antidepress (NEGATIVE) Ur Phencyclidine Scrn (NEGATIVE) Ur Amphetamine Screen (NEGATIVE) U Methamphetamines Scrn (NEGATIVE) Urine MDMA Screen (NEGATIVE) U Benzodiazepines Scrn (NEGATIVE) Urine Cocaine Screen (NEGATIVE) U Marijuana (THC) Screen (NEGATIVE) 05/06/19 05/06/19 05/06/19 Range/Units 10:10 10:24 10:24 WBC (5.0-10.0) 10^3/uL RBC (4.2-5.4) 10^6/uL Hgb (12.0-16.0) g/dL Hct (37.0-47.0) % MCV (80-100) fL MCH (27.0-34.0) pg MCHC (33.0-35.0) g/dL Plt Count (150-450) 10^3/uL Neut % (Auto) (42.2-75.2) % Lymph % (Auto) (20.5-50.1) % [place] % (Auto) (2-8) % Eos % (Auto) (1.0-3.0) % Baso % (Auto) (0.0-1.0) % Add Manual Diff Neutrophils % (Manual) (42-75) % Band Neutrophils % % Lymphocytes % (Manual) (20-50) % Monocytes % (Manual) (2-8) % Sodium (135-145) mmol/L Potassium (3.6-5.0) mmol/L Chloride (101-111) mmol/L Carbon Dioxide (21.0-31.0) mmol/L Anion Gap BUN (7-18) mg/dL Creatinine (0.6-1.3) mg/dL Est Cr Clr Drug Dosing Estimated GFR (MDRD) BUN/Creatinine Ratio Glucose (74-105) mg/dL Lactic Acid 2.9 H (0.5-2.2) mmol/L Calcium (8.4-10.2) mg/dl Total Bilirubin (0.2-1.0) mg/dL AST (10-42) IU/L ALT (10-60) IU/L Alkaline Phosphatase (42-121) IU/L Ammonia 26 (11-35) umol/L Troponin I (0.00-0.02) ng/ml Total Protein (6.7-8.2) g/dl Albumin (3.2-5.5) g/dl Globulin Albumin/Globulin Ratio Urine Color (YELLOW) Urine Appearance (CLEAR) Urine pH (5.0-9.0) Ur Specific [place] (1.005-1.030) Urine Protein (NEGATIVE) Urine Glucose (UA) (NEGATIVE) Urine Ketones (NEGATIVE) Urine Occult Blood (NEGATIVE) Urine Nitrite (NEGATIVE) Urine Bilirubin (NEGATIVE) Urine Urobilinogen (0.2-1.0) mg/dL Ur Leukocyte Esterase (NEGATIVE) Urine Opiates Screen Negative (NEGATIVE) Ur Oxycodone Screen Negative (NEGATIVE) Urine Methadone Screen Negative (NEGATIVE) Ur Barbiturates Screen Negative (NEGATIVE) U Tricyclic Antidepress Negative (NEGATIVE) Ur Phencyclidine Scrn Negative (NEGATIVE) Ur Amphetamine Screen Negative (NEGATIVE) U Methamphetamines Scrn Negative (NEGATIVE) Urine MDMA Screen Negative (NEGATIVE) U Benzodiazepines Scrn Negative (NEGATIVE) Urine Cocaine Screen Negative (NEGATIVE) U Marijuana (THC) Screen Negative (NEGATIVE) Meds: Medications Discontinued Medications Generic Name Dose Route Start Last Admin Trade Name Mami PRN Reason Stop Dose Admin Albuterol Confirm 05/06/19 10:48 05/06/19 10:48 Proventil Neb Soln Administered 05/06/19 10:49 20 mg Dose Administration 20 mg .ROUTE .STK-MED ONE Albuterol 20 mg 05/06/19 10:28 05/06/19 11:15 Proventil Neb Soln NEB 05/06/19 10:29 Not Given ONETIME ONE Norepinephrine Bitartrate 4 mg 250 mls @ 7.5 mls/hr 05/06/19 10:15 05/06/19 10:27 / Dextrose/Water IV 2 mcg/min TITRATE JUANY 7.5 mls/hr Administration Protocol 2 MCG/MIN Vancomycin HCl 1.5 gm/ Premix 300 mls @ 200 mls/hr 05/06/19 11:00 05/06/19 11 :00 IV 05/06/19 12:29 200 mls/hr ONETIME ONE Administration Naloxone HCl 2 mg 05/06/19 10:04 05/06/19 10:08 Narcan IVPUSH 05/06/19 10:05 2 mg ONETIME ONE Administration Norepinephrine Bitartrate Confirm 05/06/19 10:08 05/06/19 11:30 Levophed Administered 05/06/19 10:09 Not Given Dose 4 mg .ROUTE .[facility] ONE - Radiology Interpretation Free Text/Narrative:: chest x-ray: FINDINGS: Tubes, catheters and devices: EKG leads are present overlying the chest. Lungs: The pulmonary vasculature is normal. midlung zone subsegmental atelectasis. Pleural space: No pleural effusion. No pneumothorax is visualized. Heart/Mediastinum: Bilateral The heart is normal in size and contour. Diaphragm: The RIGHT hemidiaphragm is moderately elevated. Bones/joints: No acute abnormality identified. Other findings: Marked gastric gaseous dilatation. IMPRESSION: 1. Midlung zone subsegmental atelectasis. 2. Marked gastric gaseous dilatation. Differential diagnosis would include resuscitative efforts, partial gastric outlet obstruction, certain medications and gastroparesis. Clinical correlation is recommended. Thank you for allowing us to participate in the care of your patient. Dictated and Authenticated by: Jeovany See MD post intubation chest x-ray: FINDINGS: Tubes, catheters and devices: The endotracheal tube tip is approximately 2.5 cm above the irma. The feeding tube enters the stomach with the tip off the limits of the image. EKG leads are present overlying the chest. Lungs: Increased RIGHT medial basilar pulmonary partial/subsegmental atelectasis. Bilateral midlung zone subsegmental atelectasis. The pulmonary vasculature is normal. Pleural space: No pneumothorax. Heart/Mediastinum: The heart is normal in size and contour. Bones/joints: No acute abnormality identified. IMPRESSION: 1. Endotracheal tube placement as above. 2. Increased RIGHT medial basilar pulmonary partial/subsegmental atelectasis. 3. Bilateral midlung zone subsegmental atelectasis. Thank you for allowing us to participate in the care of your patient. Dictated and Authenticated by: Jeovany See MD 05/06/2019 10:38 AM Central Time ([place] & [place]) Departure - Departure Time of Disposition: 11:15 Disposition: DC/Tfer to Acute Hospital 02 Condition: Poor, Serious, Critical Clinical Impression: Sepsis Qualifiers: Sepsis type: sepsis due to unspecified organism Sepsis acute organ dysfunction status: unspecified Qualified Code(s): A41.9 - Sepsis, unspecified organism Renal failure Qualifiers: Renal failure chronicity: unspecified chronicity Qualified Code(s): N19 - Unspecified kidney failure Respiratory failure Qualifiers: Chronicity: acute Respiratory failure complication: unspecified whether with hypoxia or hypercapnia Qualified Code(s): J96.00 - Acute respiratory failure, unspecified whether with hypoxia or hypercapnia - Discharge Information *PRESCRIPTION DRUG MONITORING PROGRAM REVIEWED*: No *COPY OF PRESCRIPTION DRUG MONITORING REPORT IN PATIENT SUKI: No Referrals: PCP,Unobtain [Primary Care Provider] - Forms: ED Department Discharge, Interfacility Transfer EMTALA Sepsis Event Note - Focused Exam Date Exam was Performed: 05/06/19 Time Exam was Performed: 12:58 - My Orders Last 24 Hours: My Active Orders 05/06/19 10:15 Chest 1V Frontal [CR] Routine 05/06/19 10:21 Chest 1V Frontal [CR] Urgent 05/06/19 10:24 CULTURE BLOOD [BC] Stat 05/06/19 10:28 CULTURE BLOOD [BC] Stat 05/06/19 10:37 EKG 12 Lead [EKG Documentation Completion] [RC] STAT 05/06/19 10:45 Insert Zepeda Catheter [Insert Urinary Catheter] [OM.PC] Q24H Urinary Catheter Assessment [RC] ASDIRECTED 05/06/19 11:34 RT Aerosol Therapy [RC] ASDIRECTED - Assessment/Plan Last 24 Hours: My Active Orders 05/06/19 10:15 Chest 1V Frontal [CR] Routine 05/06/19 10:21 Chest 1V Frontal [CR] Urgent 05/06/19 10:24 CULTURE BLOOD [BC] Stat 05/06/19 10:28 CULTURE BLOOD [BC] Stat 05/06/19 10:37 EKG 12 Lead [EKG Documentation Completion] [RC] STAT 05/06/19 10:45 Insert Zepeda Catheter [Insert Urinary Catheter] [OM.PC] Q24H Urinary Catheter Assessment [RC] ASDIRECTED 05/06/19 11:34 RT Aerosol Therapy [RC] ASDIRECTED
[2019-05-06] MEDS ORDERED: Albuterol 0.083% 2.5 MG/3 ML Neb Soln ONE (10:48)
[2019-05-06] MEDS ORDERED: VANCOMYCIN/WATER FOR INJ (PEG) 1.5 GM in Premix Bag 1 BAG IV SCH (11:00)
[2019-05-06] MEDS ORDERED: VANCOMYCIN/WATER FOR INJ (PEG) 1.5 GM in Premix Bag 1 BAG IV ONE (11:00)
== END 2019-05-06 11:15 ==
LOC: DL.ED 10:02
DX: R00.0 Tachycardia, unspecified (principal)
CPT/HCPCS: 31500; 36415; 43752; 51702; 71045; 80053; 80305; 81003; 82140; 83605; 84484; 85025; 87040; 87077; 87186; 93005; 96365; 96375; 99285; J0330; J2310; J3370; J7060; J7613-GY

== ENCOUNTER 2019-07-24 16:51 | Emergency (ER) | payer OTHER ==
--- NOTE | 2019-07-24 16:57 | EDM.PDOC ---
ED HPI GENERAL MEDICAL PROBLEM - General Stated Complaint: AMB Time Seen by Provider: 07/24/19 16:40 Source of Information: Reports: Patient, EMS, Family - History of Present Illness INITIAL COMMENTS - FREE TEXT/NARRATIVE: This 59 yo female patient was brought to the ED by [facility] due to not feeling well. 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 The patient has been at home since that time. The patient's family reports that the patient has sores on her back that are not healing. The patient has also been experiencing increased pain to her chest. EMS reports the patient is tachycardic with a low blood pressure. The patient was moved to the ED bed and expressed increased pain with movement. Nursing staff was changing the patient's briefs, there was a large blackened ulcerated area to her buttocks with purulent drainage. Onset: Gradual Duration: Week(s):, Constant, Getting Worse Location: Reports: Back Quality: Reports: Other Severity: Severe Improves with: Reports: None Worsens with: Reports: None Context: Reports: Other Associated Symptoms: Reports: Other - Related Data Allergies Allergy/AdvReac Type Severity Reaction Status Date / Time Penicillins Allergy Severe hives and Verified 07/24/19 17:13 can't breath Home Meds: Home Meds Aspirin 81 mg PO DAILY 11/11/17 [History] Fenofibric Acid (Choline) [Fenofibric Acid] 135 mg PO DAILY 11/11/17 [History] Lisinopril 10 mg PO DAILY 11/11/17 [History] hydroCHLOROthiazide [Hydrochlorothiazide] 25 mg PO DAILY 11/11/17 [History] metFORMIN HCl [Metformin HCl] 1,000 mg PO BID 11/11/17 [History] Alendronate [Fosamax] 70 mg PO WEEKLY 12/28/17 [History] Levothyroxine [Levothroid] 137 mcg PO DAILY 11/09/18 [History] atorvaSTATin Calcium [Atorvastatin Calcium] 40 mg PO DAILY 12/09/18 [History] Apixaban [Eliquis] 5 mg PO BID 07/24/19 [History] Insulin Aspart 1 unit SUBCUT TID PRN 07/24/19 [History] Insulin Detemir [Levemir Flextouch] 15 units SUBCUT BID 07/24/19 [History] Iron Polysaccharides Complex [Ferrex 150] 150 mg PO BID 07/24/19 [History] Multivitamin [Multivitamins] 1 tab PO DAILY 07/24/19 [History] Nut.tx.gluc Intol,Lf,Soy/Fiber [Glucerna 1 Noé Liquid] 1 can PO DAILY 07/24/19 [ History] Pantoprazole Sodium [Protonix] 40 mg PO BID 07/24/19 [History] Past Medical History HEENT History: Reports: Impaired Vision Other HEENT History: glasses Cardiovascular History: Reports: High Cholesterol, Hypertension Respiratory History: Reports: None Gastrointestinal History: Reports: GERD, Other (See Below) Other Gastrointestinal History: acute constipation from pain pills - takes otc stool softeners. 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: Musculoskeletal History: Reports: Back Pain, Chronic, Osteoarthritis, Osteoporosis, Other (See Below) Other Musculoskeletal History: lumbar disc disease Left foot surgery Neurological History: Reports: Vertigo Psychiatric History: Reports: None Endocrine/Metabolic History: Reports: Diabetes, Type II, Hypothyroidism, IDDM Hematologic History: Reports: None Immunologic History: Reports: None Oncologic (Cancer) History: Reports: None Dermatologic History: Reports: None - Infectious Disease History Other Infectious Disease History: unknown - Past Surgical History HEENT Surgical History: Reports: None Cardiovascular Surgical History: Reports: None Respiratory Surgical History: Reports: None GI Surgical History: Reports: None Female Surgical History: Reports: None Neurological Surgical History: Reports: Lumbar Spine, Other (See Below) Other Neurological Surgeries/Procedures: spinal fusion Musculoskeletal Surgical History: Reports: Other (See Below) Other Musculoskeletal Surgeries/Procedures:: back surgery, LEFT foot surgery Social & Family History - Family History Family Medical History: Noncontributory - Caffeine Use Caffeine Use: Reports: None Caffeine Use Comment: unknown - Living Situation & Occupation Living situation: Reports: Occupation: Disabled ED ROS GENERAL - Review of Systems Review Of Systems: Comprehensive ROS is negative, except as noted in HPI. ED EXAM, GENERAL - Physical Exam Exam: See Below Exam Limited By: Other (difficult to understand due to slurred speech post CVA) General Appearance: Alert, Moderate Distress, Thin Eye Exam: Bilateral Eye: EOMI, Normal Inspection Ears: Normal External Exam, Normal Canal, Hearing Grossly Normal Nose: Normal Inspection, Normal Mucosa, No Blood Throat/Mouth: Normal Inspection, Normal Lips, Normal Teeth, Normal Gums, Normal Oropharynx, Normal Voice, No Airway Compromise Head: Atraumatic, Normocephalic Neck: Normal Inspection, Supple, Non-Tender, Full Range of Motion Respiratory/Chest: No Respiratory Distress, Lungs Clear, Decreased Breath Sounds Cardiovascular: Tachycardia GI/Abdominal: Normal Bowel Sounds, Soft, Non-Tender, No Organomegaly, No Distention, No Abnormal Bruit, No Mass (Female) Exam: Deferred Rectal (Female) Exam: Deferred Back Exam: Other (see below) Extremities: Limited Range of Motion (due to CVA left side ) Neurological: Alert, Oriented Skin Exam: Other (The patient has extensive ulceration (skin breakdown) on her buttocks which extends throughout the sacral area with purulent drainage. The patient has pressure ulcers on both heels and a small skin tear to the left posterior calf. There is no major bleeding. ) Course - Vital Signs Last Recorded V/S: Last Vital Signs Temp 36.8 C 07/24/19 17:11 Pulse 118 H 07/24/19 17:11 Resp 25 H 07/24/19 17:11 BP 62/36 L 07/24/19 17:11 Pulse Ox 94 L 07/24/19 17:11 - Orders/Labs/Meds Orders: Active Orders 24 hr Category Date Time Status EKG Documentation Completion [RC] URGENT Care 07/24/19 16:34 Active CULTURE BLOOD [BC] Stat Lab 07/24/19 17:05 Received CULTURE URINE [RM] Urgent Lab 07/24/19 17:02 Received Norepinephrine [Levophed] 4 mg Med 07/24/19 19:30 Active Dextrose 5% in Water 246 ml IV TITRATE Sodium Chloride 0.9% [Normal Saline] 1,000 ml Med 07/24/19 19:17 Active IV .BOLUS Vancomycin 1 gm Med 07/24/19 19:32 Ordered Sodium Chloride 0.9% [Normal Saline] 250 ml IV ONETIME cefTRIAXone [Rocephin] 1 gm Med 07/24/19 19:30 Active Sodium Chloride 0.9% [Normal Saline] 50 ml IV ONETIME Medication Orders Sodium Chloride (Normal Saline) 1,000 mls @ 999 mls/hr IV .BOLUS ONE Stop: 07/24/19 20:17 Last Admin: 07/24/19 19:18 Dose: 999 mls/hr Norepinephrine Bitartrate 4 mg (/ Dextrose/Water) 250 mls @ 7.5 mls/hr IV TITRATE JUANY; Protocol Last Admin: 07/24/19 19:25 Dose: 4 mcg/min, 15 mls/hr Ceftriaxone Sodium 1 gm/ (Sodium Chloride) 50 mls @ 100 mls/hr IV ONETIME ONE Stop: 07/24/19 19:59 Vancomycin HCl 1 gm/ Sodium (Chloride) 250 mls @ 167 mls/hr IV ONETIME ONE Stop: 07/24/19 21:01 Labs: Laboratory Tests 07/24/19 07/24/19 07/24/19 Range/Units 17:02 17:05 17:05 WBC 19.2 H (5.0-10.0) 10^3/uL RBC 2.72 L (4.2-5.4) 10^6/uL Hgb 7.8 L (12.0-16.0) g/dL Hct 24.6 L (37.0-47.0) % MCV 90.4 D (80-100) fL MCH 28.7 (27.0-34.0) pg MCHC 31.7 L (33.0-35.0) g/dL Plt Count 530 H D (150-450) 10^3/uL Neut % (Auto) 83.5 H (42.2-75.2) % Lymph % (Auto) 10.4 L (20.5-50.1) % Rains % (Auto) 5.9 (2-8) % Eos % (Auto) 0.1 L (1.0-3.0) % Baso % (Auto) 0.1 (0.0-1.0) % Add Manual Diff Yes Neutrophils % (Manual) 83 H (42-75) % Band Neutrophils % 3 % Lymphocytes % (Manual) 13 L (20-50) % Monocytes % (Manual) 1 L (2-8) % Platelet Estimate Increased Sodium (136-145) mmol/L Potassium (3.5-5.1) mmol/L Chloride (98-107) mmol/L Carbon Dioxide (21-32) mmol/L Anion Gap (7-13) mEq/L BUN (7-18) mg/dL Creatinine (0.55-1.02) mg/dL Est Cr Clr Drug Dosing Estimated GFR (MDRD) BUN/Creatinine Ratio (No establ ref range) Glucose (74-99) mg/dL Lactic Acid 1.1 (0.4-2.0) mmol/L Calcium (8.5-10.1) mg/dL Total Bilirubin (0.2-1.0) mg/dL AST (15-37) U/L ALT (14-59) U/L Alkaline Phosphatase (46-116) U/L Troponin I (0.000-0.056) ng/mL Total Protein (6.4-8.2) g/dL Albumin (3.4-5.0) g/dL Globulin Albumin/Globulin Ratio Urine Color Dark yellow (YELLOW) Urine Appearance Turbid (CLEAR) Urine pH 5.5 (5.0-9.0) Ur Specific Heppner 1.020 (1.005-1.030) Urine Protein 100 H (NEGATIVE) Urine Glucose (UA) Negative (NEGATIVE) Urine Ketones Trace H (NEGATIVE) Urine Occult Blood Moderate H (NEGATIVE) Urine Nitrite Negative (NEGATIVE) Urine Bilirubin Small H (NEGATIVE) Urine Urobilinogen 0.2 (0.2-1.0) mg/dL Ur Leukocyte Esterase Large H (NEGATIVE) Urine RBC 0-5 /HPF Urine WBC >100 H (0-5/HPF) /HPF Ur Epithelial Cells Occasional (NOT SEEN) /HPF Urine Bacteria Few (0-FEW/HPF) /HPF Urine Yeast Many H (NOT SEEN) /HPF Urinalysis Comment 07/23/ Range/Units 17:05 WBC (5.0-10.0) 10^3/uL RBC (4.2-5.4) 10^6/uL Hgb (12.0-16.0) g/dL Hct (37.0-47.0) % MCV (80-100) fL MCH (27.0-34.0) pg MCHC (33.0-35.0) g/dL Plt Count (150-450) 10^3/uL Neut % (Auto) (42.2-75.2) % Lymph % (Auto) (20.5-50.1) % Rains % (Auto) (2-8) % Eos % (Auto) (1.0-3.0) % Baso % (Auto) (0.0-1.0) % Add Manual Diff Neutrophils % (Manual) (42-75) % Band Neutrophils % % Lymphocytes % (Manual) (20-50) % Monocytes % (Manual) (2-8) % Platelet Estimate Sodium 135 L (136-145) mmol/L Potassium 5.9 H (3.5-5.1) mmol/L Chloride 103 (98-107) mmol/L Carbon Dioxide 19 L (21-32) mmol/L Anion Gap 18.9 H (7-13) mEq/L BUN 53 H (7-18) mg/dL Creatinine 0.93 (0.55-1.02) mg/dL Est Cr Clr Drug Dosing TNP Estimated GFR (MDRD) > 60 BUN/Creatinine Ratio 57.0 (No establ ref range) Glucose 77 (74-99) mg/dL Lactic Acid (0.4-2.0) mmol/L Calcium 7.4 L (8.5-10.1) mg/dL Total Bilirubin 0.4 (0.2-1.0) mg/dL AST 50 H (15-37) U/L ALT 20 (14-59) U/L Alkaline Phosphatase 106 (46-116) U/L Troponin I 0.037 (0.000-0.056) ng/mL Total Protein 5.1 L (6.4-8.2) g/dL Albumin 1.8 L (3.4-5.0) g/dL Globulin 3.3 Albumin/Globulin Ratio 0.55 Urine Color (YELLOW) Urine Appearance (CLEAR) Urine pH (5.0-9.0) Ur Specific Heppner (1.005-1.030) Urine Protein (NEGATIVE) Urine Glucose (UA) (NEGATIVE) Urine Ketones (NEGATIVE) Urine Occult Blood (NEGATIVE) Urine Nitrite (NEGATIVE) Urine Bilirubin (NEGATIVE) Urine Urobilinogen (0.2-1.0) mg/dL Ur Leukocyte Esterase (NEGATIVE) Urine RBC /HPF Urine WBC (0-5/HPF) /HPF Ur Epithelial Cells (NOT SEEN) /HPF Urine Bacteria (0-FEW/HPF) /HPF Urine Yeast (NOT SEEN) /HPF Urinalysis Comment Meds: Medications Generic Name Dose Route Start Last Admin Trade Name Freq PRN Reason Stop Dose Admin Sodium Chloride 1,000 mls @ 999 mls/hr 07/24/19 19:17 07/24/19 19:18 Normal Saline IV 07/24/19 20:17 999 mls/hr .BOLUS ONE Administration Norepinephrine Bitartrate 4 mg 250 mls @ 7.5 mls/hr 07/24/19 19:30 07/24/19 19:25 / Dextrose/Water IV 4 mcg/min TITRATE JUANY 15 mls/hr Administration Protocol 2 MCG/MIN Ceftriaxone Sodium 1 gm/ 50 mls @ 100 mls/hr 07/24/19 19:30 Sodium Chloride IV 07/24/19 19:59 ONETIME ONE Vancomycin HCl 1 gm/ Sodium 250 mls @ 167 mls/hr 07/24/19 19:32 Chloride IV 07/24/19 21:01 ONETIME ONE Discontinued Medications Generic Name Dose Route Start Last Admin Trade Name Freq PRN Reason Stop Dose Admin Hydrocortisone Sodium Succinate 100 mg 07/24/19 19:32 Solu-Cortef IVPUSH 07/24/19 19:33 ONETIME ONE Sodium Chloride 1,000 mls @ 999 mls/hr 07/24/19 17:06 07/24/19 17:13 Normal Saline IV 07/24/19 18:06 999 mls/hr .BOLUS ONE Administration Norepinephrine Bitartrate Confirm 07/24/19 19:21 07/24/19 19:26 Levophed Administered 07/24/19 19:22 Not Given Dose 4 mg .ROUTE .STK-MED ONE Departure - Departure Time of Disposition: 19:37 Disposition: DC/Tfer to [facility] 02 Condition: Serious Clinical Impression: Sepsis Qualifiers: Sepsis type: sepsis due to unspecified organism Sepsis acute organ dysfunction status: unspecified Qualified Code(s): A41.9 - Sepsis, unspecified organism Pressure ulcer Qualifiers: Pressure injury location: unspecified location Pressure injury stage: unspecified pressure injury stage Qualified Code(s): L89.90 - Pressure ulcer of unspecified site, unspecified stage - Discharge Information Care Plan Goals: Discussed the patient's history with Dr. Painting ([facility]). Dr. Painting accepted the patient for continued evaluation and further management. The patient will be transported by [facility]. Sepsis Event Note - Focused Exam Vital Signs: Vital Signs Temp Pulse Resp BP Pulse Ox 07/24/19 17:11 36.8 C 118 H 25 H 62/36 L 94 L Date Exam was Performed: 07/24/19 Time Exam was Performed: 19:37 - My Orders Last 24 Hours: My Active Orders 07/24/19 16:34 EKG Documentation Completion [RC] URGENT 07/24/19 17:02 CULTURE URINE [RM] Urgent 07/24/19 17:05 CULTURE BLOOD [BC] Stat 07/24/19 19:17 Sodium Chloride 0.9% [Normal Saline] 1,000 ml IV .BOLUS 07/24/19 19:30 Norepinephrine [Levophed] 4 mg Dextrose 5% in Water 246 ml IV TITRATE cefTRIAXone [Rocephin] 1 gm Sodium Chloride 0.9% [Normal Saline] 50 ml IV ONETIME 07/24/19 19:32 Vancomycin 1 gm Sodium Chloride 0.9% [Normal Saline] 250 ml IV ONETIME - Assessment/Plan Last 24 Hours: My Active Orders 07/24/19 16:34 EKG Documentation Completion [RC] URGENT 07/24/19 17:02 CULTURE URINE [RM] Urgent 07/24/19 17:05 CULTURE BLOOD [BC] Stat 07/24/19 19:17 Sodium Chloride 0.9% [Normal Saline] 1,000 ml IV .BOLUS 07/24/19 19:30 Norepinephrine [Levophed] 4 mg Dextrose 5% in Water 246 ml IV TITRATE cefTRIAXone [Rocephin] 1 gm Sodium Chloride 0.9% [Normal Saline] 50 ml IV ONETIME 07/24/19 19:32 Vancomycin 1 gm Sodium Chloride 0.9% [Normal Saline] 250 ml IV ONETIME
[2019-07-24] MEDS: Sodium Chloride 0.9% 1,000 ML IV ONE ×2 (17:13→19:18)
[2019-07-24 18:44] LABS: ANION GAP 18.9 mEq/L (7-13); CHLORIDE,CL 103 mmol/L (98-107); SODIUM,NA 135 mmol/L (136-145)
[2019-07-24] MEDS: Norepinephrine 4 MG in Dextrose 5% in Water 246 ML IV SCH ×2 (19:25)
[2019-07-24] MEDS: Norepinephrine 4 MG/4 ML SDV ONE (19:26)
[2019-07-24] MEDS: Hydrocortisone Sodium Succinate 100 MG/2 ML SDV IVPUSH ONE (19:43)
[2019-07-24] MEDS: cefTRIAXone 1 GM in Sodium Chloride 0.9% 50 ML IV ONE (19:44)
== END 2019-07-24 19:56 ==
LOC: DL.ED 16:51
DX: A41.9 Sepsis, unspecified organism (principal); L89.90 Pressure ulcer of unspecified site, unspecified stage
CPT/HCPCS: 36415; 71045; 80053; 81001; 83605; 84484; 85025; 87040; 87077; 87086; 87186; 93005; 96361; 96374; 96375; 99285; J0696; J1720; J3370; J7030; J7050; J7060; 99284